=== PATIENT | female | born 1985 | race Caucasian/White ===

== ENCOUNTER 2017-01-18 22:21 | Emergency (ER) | payer BC ==
[2017-01-18 22:28] VITALS: BP 139/80
[2017-01-18] MEDS ORDERED: NS 0.9% 1000 ML* 1,000 ML IV ONE (22:44)
[2017-01-18 23:53] LABS: Hematocrit 42 % (35-47); Hemoglobin 14.2 g/dl (12.0-16.0); Mean Corpuscular HGB Conc 34 g/dl (31-36); Mean Corpuscular Hemoglobin 31 pg (27-31); Mean Corpuscular Volume 91 fL (80-97); Mean Platelet Volume 8 um3 (7.4-10.4); Red Blood Count 4.58 10^6/ul (4.0-5.4); Red Cell Distribution Width 14 % (10.5-15); White Blood Count 16.7 10^3/ul (3.5-10.8)
[2017-01-19 00:06] LABS: Albumin 3.9 g/dL (3.2-5.2); BUN/Creatinine Ratio 12.5 (8-20); C Reactive Protein 9.06 mg/L (< 5.00); Calcium 9.7 mg/dL (8.6-10.3); EGFR African American 140.1 (>60); Globulin 3.3 g/dL (2-4); Potassium 3.3 mmol/L (3.5-5.0); Total Bilirubin 0.3 mg/dL (0.2-1.0); Total Protein 7.2 g/dL (6.4-8.9)
--- NOTE | 2017-01-19 02:15 | ED ---
Jarocho Kraft SooYoung, scribed for Nahum Cummings MD on 01/18/17 at 2247 . GI/ HPI - HPI Summary HPI Summary: A 31 y/o F presents to ED with c/o vaginal spotting onset two days ago. Pt is approx 8 weeks , based on 2 home tests. Associated sx: abd cramping. she is scheduled to see her OB-POLITICAL SCIENCE PROFESSOR on 01/30. LNMP was approx 11/22. Pert PMHx: PCOS. - History of Current Complaint Chief Complaint: EDVaginalBleeding Time Seen by Provider: 01/18/17 22:44 Stated Complaint: VAG BLEEDING/CRAMPING-8WKS PREG Hx Obtained From: Patient Onset/Duration: Started Days Ago, Still Present Pain Intensity: 0 - out of 10 Associated Signs and Symptoms: Positive: Other: - pos: cramping Additional Signs & Symptoms: Positive: Positive Test, - Allergy/Home Medications Allergies/Adverse Reactions: Allergies Allergy/AdvReac Type Severity Reaction Status Date / Time immunization-perservatives Allergy Severe seizures Uncoded 02/08/13 13:32 PMH/Surg Hx/FS Hx/Imm Hx Previously Healthy: Yes History: Reports: Other Problems/Disorders - PCOS Opthamlomology History: Denies: Hx Legally Blind Infectious Disease History: No Infectious Disease History: Denies: Traveled Outside the [place] in Last 30 Days - Family History Known Family History: Positive: Cardiac Disease - grandfather, Diabetes - grandmother - Social History Occupation: Unemployed Lives: With Family Alcohol Use: Occasionally Hx Substance Use: No Substance Use Type: Reports: None Hx Tobacco Use: Yes Smoking Status (MU): Heavy Every Day Tobacco Smoker Type: Cigarettes Amount Used/How Often: 1 ppd Length of Time of Smoking/Using Tobacco: 10 yrs Have You Smoked in the Last Year: Yes Review of Systems Negative: Fever Positive: Abdominal Pain - "cramping" Positive: other - pos: , vaginal spotting All Other Systems Reviewed And Are Negative: Yes Physical Exam Triage Information Reviewed: Yes Vital Signs On Initial Exam: Initial Vitals Temp Pulse Resp BP Pulse Ox 97.8 F 101 16 139/80 100 01/18/17 22:26 01/18/17 22:26 01/18/17 22:26 01/18/17 22:26 01/18/17 22:26 Vital Signs Reviewed: Yes Appearance: Positive: Well-Appearing, No Pain Distress Skin: Positive: Warm Head/Face: Positive: Normal Head/Face Inspection Eyes: Positive: STONEY Neck: Positive: Supple Respiratory/Lung Sounds: Positive: Breath Sounds Present Cardiovascular: Positive: RRR Abdomen Description: Positive: Nontender, Soft Bowel Sounds: Positive: Present Musculoskeletal: Positive: Strength/ROM Intact Neurological: Positive: Alert, Oriented to Person Place, Time Psychiatric: Positive: Affect/Mood Appropriate - Aba Coma Scale Coma Scale Total: 15 Diagnostics - Vital Signs Vital Signs Temp Pulse Resp BP Pulse Ox 01/18/17 22:37 98.8 F 101 18 139/80 100 01/18/17 22:26 97.8 F 101 16 139/80 100 - Laboratory Lab Results: Lab Results 01/18/17 01/18/17 Range/Units 23:30 23:30 WBC 16.7 H (3.5-10.8) 10^3/ul RBC 4.58 (4.0-5.4) 10^6/ul Hgb 14.2 (12.0-16.0) g/dl Hct 42 (35-47) % MCV 91 (80-97) fL MCH 31 (27-31) pg MCHC 34 (31-36) g/dl RDW 14 (10.5-15) % Plt Count 313 (150-450) 10^3/ul MPV 8 (7.4-10.4) um3 Neut % (Auto) 67.6 (38-83) % Lymph % (Auto) 21.7 L (25-47) % [place] % (Auto) 7.3 (1-9) % Eos % (Auto) 2.5 (0-6) % Baso % (Auto) 0.9 (0-2) % Absolute Neuts (auto) 11.3 H (1.5-7.7) 10^3/ul Absolute Lymphs (auto) 3.6 (1.0-4.8) 10^3/ul Absolute Monos (auto) 1.2 H (0-0.8) 10^3/ul Absolute Eos (auto) 0.4 (0-0.6) 10^3/ul Absolute Basos (auto) 0.2 (0-0.2) 10^3/ul Absolute Nucleated RBC 0 10^3/ul Nucleated RBC % 0 Sodium 135 (133-145) mmol/L Potassium 3.3 L (3.5-5.0) mmol/L Chloride 103 (101-111) mmol/L Carbon Dioxide 24 (22-32) mmol/L Anion Gap 8 (2-11) mmol/L BUN 8 (6-24) mg/dL Creatinine 0.64 (0.51-0.95) mg/dL Est GFR ( Amer) 140.1 (>60) Est GFR (Non-Af Amer) 109.0 (>60) BUN/Creatinine Ratio 12.5 (8-20) Glucose 101 H (70-100) mg/dL Calcium 9.7 (8.6-10.3) mg/dL Total Bilirubin 0.30 (0.2-1.0) mg/dL AST 17 (13-39) U/L ALT 14 (7-52) U/L Alkaline Phosphatase 76 (34-104) U/L C-Reactive Protein 9.06 H (< 5.00) mg/L Total Protein 7.2 (6.4-8.9) g/dL Albumin 3.9 (3.2-5.2) g/dL Globulin 3.3 (2-4) g/dL Albumin/Globulin Ratio 1.2 (1-3) Beta HCG, Quant 99652.00 mIU/mL Result Diagrams: 01/18/17 23:30 01/18/17 23:30 Lab Statement: Any lab studies that have been ordered have been reviewed, and results considered in the medical decision making process. - Ultrasound No standard instances Ultrasound Interpretation: Positive (See Comments) - IMPRESSION: Single live intrauterine gestation of approximately 6 weeks 4 days gestational age. A small to moderate size. Gestational hematoma seen anterior and to the right of the gestational sac. Heterogeneous appearance of left ovary. R ovary not seen. Ultrasound Interpretation Completed By: Radiologist Re-Evaluation - Re-Evaluation First Eval Comment: results d/w pt GIGU Course/Dx - Course Course Of Treatment: Pt is a 31 y/o F presenting with vaginal spotting onset two days ago. Pt is approx 8 weeks , based on 2 home tests. Associated sx: cramping. she is scheduled to see her OB-POLITICAL SCIENCE PROFESSOR on 01/30. LNMP was approx 11/22. Pert PMHx: PCOS. Pt given fluids in ED. Lab results show elevated WBC, CRP of 9.07. Transvaginal U/S shows "single live intrauterine gestation of approximately 6 weeks 4 days gestational age. A small to moderate size. Gestational hematoma seen anterior and to the right of the gestational sac. Heterogeneous appearance of left ovary. R ovary not seen." - Diagnoses Provider Diagnoses: Threatened Discharge - Discharge Plan Condition: Stable Disposition: HOME Patient Education Materials: Threatened Miscarriage (ED) Referrals: No Primary Care Phys,NOPCP [Primary Care Provider] - [facility] [place] PHYSICIAN REFERRAL [Outside] Additional Instructions: Please return to the ED if you experience new or worsening symptoms. The documentation as recorded by the Jarocho patterson SooYoung accurately reflects the service I personally performed and the decisions made by me, Nahum Cummings MD.
--- NOTE | 2017-01-19 09:22 | RAD ---
HISTORY: Vaginal spotting in a female COMPARISONS: None TECHNIQUE: Multiple transverse and longitudinal ultrasound images were obtained of the pelvis using grayscale, color flow, spectral and M-mode sonographic imaging. FINDINGS: UTERUS: The uterus is normal in shape, size, contour, and echotexture. GESTATION: There is a single live intrauterine gestation. The crown-rump length measures 0.9 cm yielding a gestational age of 7 weeks and 0 days. The mean gestational sac diameter measures 1.2 centimeters yielding a gestational age of 6 weeks and 0 days. cardiac motion is detected at a rate of 152 beats per minute. Along the anterior and superior margin of the gestational sac is a small hematoma. CUL-DE-SAC: There is no free fluid within the cul-de-sac. Left OVARY: The right ovary measures 3.2 x 2.5 x 2.4 cm. LEFT OVARY: Not discretely visualized. IMPRESSION: 1. Single live intrauterine gestation with a crown-rump length yielding a gestational age of 7 weeks and 0 days. 2. Very small subchorionic hematoma along the superior and anterior margin of the gestational sac. 3. The right ovary is not discretely visualized.
== END 2017-01-19 02:37 | disposition home or self-care (01) ==
LOC: ED 22:21
DX: O20.0 Threatened abortion (principal); Z3A.08 8 weeks gestation of pregnancy; E28.2 Polycystic ovarian syndrome; F17.210 Nicotine dependence, cigarettes, uncomplicated
CPT/HCPCS: 36415; 76817; 80053; 84702; 85025; 86140; 99282

== ENCOUNTER 2018-07-04 15:59 | Inpatient (IN) | payer BC ==
--- NOTE | 2018-07-04 16:50 | HP ---
General Information - Reason for Visit Spontaneous rupture of membranes, GBS + and labor evaluation - General Information Maternal Age: 32 Grav: 3 Para: 0 SAB: 2 IEA: 0 Estimated Due Date: 07/15/18 Determined By: LMP Gestational Age in Weeks/Days: 38-3/7 Maternal Blood Type and Rh: O Negative - Results this Serology/RPR Result: Non-Reactive Rubella Result: Immune HBsAg Result: Negative HIV Result: Negative GBS Culture Result: Positive Past Medical History Delivery History: See Records Delivery History Comment: Hx MAB x 2 primigravida Pertinent Past Medical History: See Records Past Medical History Comment: PCOS Migraine Anxiety no current medications Pertinent Past Surgical History: See Records Past Surgical History Comment: 03/2013 D&C Pertinent Family History: See Records Family History Comment: Mother: RA, Fibromyalgia, Celiac Disease, deliveries Brother 2: at due to Potter's Syndrome PGM: DM, Bipolar PGF: . [place] MGM: . Stroke MGF: Heart disease, Lung cancer - Antepartal Records Antepartal Records: Reviewed, Complicated by: - Obesity, GBS bacteriuria Review of Systems Constitutional: Uncomfortable - with contractions CV Complaint: No Respiratory: Shortness of Breath: No Gastrointestinal: No Nausea/Vomiting, Normal Bowel Movement Genitourinary: Leaking Fluid, No Dysuria, No Bleeding Musculoskeletal: Contractions Neurological: No Headache, No Visual Changes Movement: Normal Exam Allergies/Adverse Reactions: Allergies hydrocodone Allergy (Verified 07/02/18 02:02) Itching immunization-perservatives Allergy (Severe, Uncoded 07/02/18 02:02) seizures BP 119/81 HR 85 RR 16 T 98.4 SpO2 98% on RA Lab Values - Entire Visit: Laboratory Tests 07/04/18 16:11 Vag Amniotic Fld Detect Positive - Measurements Height: 5 ft 4.5 in Weight: 230 lb Body Mass Index (BMI): 38.8 Pre- Weight: 208 lb - Exam Breast: Breast Exam Deferred CVA: No CVA Tenderness Extremities: No Edema Heart: Normal Rhythm/Heart Sounds HEENT: No Significant Findings Lungs: Clear Bilaterally Rectal: Rectal Exam Deferred Reflexes: DTR 2+ Thyroid: No Thyromegaly - Abdominal Exam Abdomen Exam: Non-Tender, Fundal Height Consistent with Dates - Ultrasound/Biophysical Profile Ultrasound Status: Not Done Targeted Exam Findings Estimated Weight: Growth sono 06/20/18 5lbs 8oz (17.8 %tile). By Luca today 6.5lbs Cervical Exam: 4cm Effacement: 100% Station: -1 Presenting Part: Vertex Membrane Status: SROM Amniotic Fluid Evaluation: Gross Rupture, Clear Sterile Speculum Exam: Not done Bleeding/Discharge: None EFM Findings - External Monitor Findings Baseline Heart Rate: 125 External Monitor Findings: Accelerations Present, No Pattern of Variable or Late Decelerations, Variability Moderate, Baseline Stable External Monitor Findings Comment: No evidence of metabolic acidemia Contractions: Regular, Moderate, 45-90 Seconds Contraction Frequency: 2-4 min Assessment/Plan - Assessment IUP at 38+ weeks with SROM to clear fluid in early active labor No evidence of metabolic acidemia GBS + - Obstetrical Risk Factors Obstetrical Risk Factors: GBS Positive, Obesity - Plan Plan: Observe, Admit - Anticipate Vaginal Delivery Plan Comment: Admit. Begin GBS prophylaxis. Pt hoping for an unmedicated delivery but will request pain relief if desired. Interested in tub. Expectant mgmt for now. Consider augmentation PRN. Anticipate - Date/Time of Admission Date of Admission: 07/04/18 Time of Admission: 16:40
[2018-07-04] MEDS ORDERED: Penicillin G Potassium IV* 5,000,000 UNITS in NS 0.9% 100 ML* 100 ML IVPB ONE (17:00)
[2018-07-04 17:21] LABS: Hematocrit 41 % (35-47); Mean Corpuscular HGB Conc 34 g/dl (31-36); Mean Corpuscular Hemoglobin 32 pg (27-31); Mean Corpuscular Volume 94 fL (80-97); Mean Platelet Volume 9.3 fL (7.4-10.4); Platelet Count 280 10^3/ul (150-450); Red Blood Count 4.38 10^6/ul (4.00-5.40); Red Cell Distribution Width 13 % (10.5-15); White Blood Count 18.6 10^3/ul (3.5-10.8)
[2018-07-04 18:06] LABS: ABS Basophils 0.1 10^3/ul (0-0.2); ABS Eosinophils 0.2 10^3/ul (0-0.6); ABS Lymphocytes 2.3 10^3/ul (1.0-4.8); ABS Monocytes 1.1 10^3/ul (0-0.8); ABS Nucleated RBC 0 10^3/ul; Eosinophil % 0.8 %; Lymphocyte % 12.6 %; Nucleated Red Blood Cells % 0.1
[2018-07-04] MEDS ORDERED: OBEPIDURAL* 250 ML EPIDURAL ONE (19:36)
[2018-07-04] MEDS ORDERED: fentaNYL* 50 MCG/ML 2 ML VIAL (100 MCG VIAL) ONE (19:38)
[2018-07-04] MEDS ORDERED: Famotidine TAB* 20 MG PO PRN (20:31)
[2018-07-04] MEDS ORDERED: Phenylephrine IV* 40 MCG/ML 10 ML SYRINGE IV PUSH PRN ×2 (20:31)
[2018-07-04] MEDS ORDERED: Sodium Citrate/Citric Acid* 15 ML UDC PO PRN (20:31)
[2018-07-04] MEDS ORDERED: OBEPIDURAL* 250 ML EPIDURAL SCH (21:00)
[2018-07-04] MEDS: Penicillin G Potassium IV* 2,500,000 UNITS in NS 0.9% 100 ML* 100 ML IVPB SCH (21:28)
[2018-07-05] MEDS: Penicillin G Potassium IV* 2,500,000 UNITS in NS 0.9% 100 ML* 100 ML IVPB SCH (02:01)
[2018-07-05] MEDS ORDERED: Oxytocin in LR* 20 UNITS/1,000 ML BAG IVPB ONE (04:45)
[2018-07-05] MEDS ORDERED: Dibucaine 1% 28.35 GM TUBE PR PRN (05:04)
[2018-07-05] MEDS ORDERED: Witch Hazel PAD* JAR TOPICAL PRN (05:04)
[2018-07-05] MEDS ORDERED: Glycerin ADULT SUPP PR PRN (05:04)
[2018-07-05] MEDS ORDERED: Acetaminophen TAB* 325 MG PO PRN (05:04)
[2018-07-05] MEDS ORDERED: RHO D Immune Globulin (HUMAN)* 300 MCG = 1,500 I.U. INJ IM ONE (05:04)
--- NOTE | 2018-07-05 05:23 | PROCNOTE ---
[facility] OB: Delivery Note - Nursery Level of Nursery: Regular/Bedside - Perineum Perineal Injury: Right Mediolateral, Vaginal Laceration - 5 cm repaired with 3- polysorb Perineal Repair: By Delivering Practioner - Events Delivery Events of Note: Difficult Delivery, Post- Bleeding - Meds Given - see written note. right mediolateral episiotomy for bradycardia for 15 minutes - Risk for Falls Delivered OB Patient- Risk for Falls: Heavy Bleeding Fall Risk: Patient is at High Risk for Falls
[2018-07-05] MEDS ORDERED: Misoprostol TAB* 200 MCG PR ONE (05:24)
[2018-07-05] MEDS ORDERED: Oxytocin in LR* 20 UNITS/1,000 ML BAG IVPB SCH (06:00)
[2018-07-05] MEDS ORDERED: Simethicone TAB* 80 MG TAB.CHEW PO SCH (08:30)
[2018-07-05] MEDS: Docusate CAP* 100 MG PO SCH ×3 (09:46→21:04)
[2018-07-05] MEDS: Ibuprofen TAB* 600 MG PO PRN ×2 (12:13→18:20)
[2018-07-06 06:24] LABS: ABS Basophils 0.2 10^3/ul (0-0.2); ABS Eosinophils 0.3 10^3/ul (0-0.6); ABS Lymphocytes 3.6 10^3/ul (1.0-4.8); ABS Monocytes 0.9 10^3/ul (0-0.8); ABS Neutrophils 11.6 10^3/ul (1.5-7.7); ABS Nucleated RBC 0 10^3/ul; Hematocrit 30 % (35-47); Hemoglobin 10.3 g/dl (12.0-16.0); Lymphocyte % 21.6 %; Mean Corpuscular HGB Conc 34 g/dl (31-36); Mean Corpuscular Hemoglobin 32 pg (27-31); Mean Corpuscular Volume 94 fL (80-97); Mean Platelet Volume 8.7 fL (7.4-10.4); Nucleated Red Blood Cells % 0; Platelet Count 232 10^3/ul (150-450); Red Blood Count 3.24 10^6/ul (4.00-5.40); Red Cell Distribution Width 13 % (10.5-15); White Blood Count 16.6 10^3/ul (3.5-10.8)
[2018-07-06] MEDS ORDERED: Ferrous Gluconate TAB* 324 MG TAB PO SCH (09:00)
[2018-07-06] MEDS: Docusate CAP* 100 MG PO SCH ×3 (09:35→21:17)
[2018-07-06] MEDS: Ibuprofen TAB* 600 MG PO PRN ×2 (09:35→18:12)
[2018-07-07] MEDS: Ibuprofen TAB* 600 MG PO PRN (05:43)
[2018-07-07] MEDS: Docusate CAP* 100 MG PO SCH (07:51)
[2018-07-07 07:59] VITALS: BP 127/75
== END 2018-07-07 09:50 | disposition home or self-care (01) | DRG 560 ==
LOC: MCHOBOUT 15:59 → MCHOB 16:41
PROVIDERS: ADMIT Midwife; ATTEND Obstetrics & Gynecology
PROC: 10E0XZZ Delivery of Products of Conception, External Approach (ICD-10-PCS; principal; 2018-07-05)
PROC: 0HQ9XZZ Repair Perineum Skin, External Approach (ICD-10-PCS; 2018-07-05)
PROC: 0W8NXZZ Division of Female Perineum, External Approach (ICD-10-PCS; 2018-07-05)
DX: O42.02 Full-term premature rupture of membranes, onset of labor within 24 hours of rupture (principal); O72.1 Other immediate postpartum hemorrhage; Z37.0 Single live birth; O99.824 Streptococcus B carrier state complicating childbirth; O70.0 First degree perineal laceration during delivery; O76 Abnormality in fetal heart rate and rhythm complicating labor and delivery; Z3A.38 38 weeks gestation of pregnancy; Z87.891 Personal history of nicotine dependence
CPT/HCPCS: 36415; 84112; 85025; 86850; 86900; 86901; A9270-GY; J2540; J3010